=== PATIENT | female | born 1965 | race Caucasian/White ===

== ENCOUNTER → 2021-08-02 | Outpatient (CLI) | payer MEDICARE ==
[2021-08-03 08:13] LABS: RHEUMATOID ARTHRITIS FACTOR 10.4 IU/mL (<14.0)
[2021-08-03 13:13] LABS: ALDOLASE 6.4 U/L (3.3-10.3)
== END ==
LOC: LAB 10:12
PROVIDERS: Internal Medicine
DX: R53.83 Other fatigue (principal); M79.10 Myalgia, unspecified site; M25.50 Pain in unspecified joint; E55.9 Vitamin D deficiency, unspecified
CPT/HCPCS: 36415; 82085; 82550; 82728; 83520; 85652; 86140; 86200; 86431